=== PATIENT | female | born 1985 | race African-American/Black ===

== ENCOUNTER 2016-09-06 06:56 | Emergency (ER) | payer OTHER ==
[2016-09-06 07:38] LABS: BASOPHIL % 0.8 % (0-2); PLATELET COUNT 230 x10^3mcL (130-400)
[2016-09-06 07:43] LABS: CALCIUM 8.9 mg/dL (8.5-10.1); CARBON DIOXIDE 27.6 mmol/L (21-32); CHLORIDE SERUM 101 mmol/L (98-107); GFR1 > 60 mL/min; GLUCOSE SERUM 169 mg/dL (74-106); POTASSIUM SERUM 4.5 mmol/L (3.5-5.1); SODIUM SERUM 133 mmol/L (136-145)
[2016-09-06 07:45] LABS: RED CELL DISTRIBUTION WIDTH 15.6 % (11.5-14.5)
[2016-09-06 07:48] LABS: ALBUMIN 3.5 g/dL (3.4-5.0); ALKALINE PHOSPHATASE 82 U/L (46-116); ALT/SGPT 16 U/L (14-59); AMYLASE 61 U/L (25-115); AST/SGOT 14 U/L (15-37); BILIRUBIN TOTAL 0.4 mg/dL (0.20-1.00); LIPASE 155 IU/L (73-393); TOTAL PROTEIN, SERUM 7.3 g/dL (6.4-8.2)
[2016-09-06 08:36] LABS: UA SPECIFIC GRAVITY >=1.030 (1.005-1.035); microscopic required? YES; urine erythrocyte NEGATIVE (NEGATIVE)
[2016-09-06 10:14] VITALS: BP 106/72
== END 2016-09-06 10:15 | disposition home or self-care (01) ==
LOC: ED 06:56
PROVIDERS: Emergency Medicine
DX: N83.201 Unspecified ovarian cyst, right side (principal)
CPT/HCPCS: J1170; J2405; J7030; Q9967

== ENCOUNTER 2016-12-27 14:36 | Emergency (ER) | payer OTHER ==
[2016-12-27 17:34] LABS: BASOPHIL % 0.6 % (0-2); PLATELET COUNT 184 x10^3mcL (130-400)
[2016-12-27 17:35] LABS: RED CELL DISTRIBUTION WIDTH 17.3 % (11.5-14.5)
[2016-12-27 17:36] LABS: ALKALINE PHOSPHATASE 112 U/L (46-116); ALT/SGPT 59 U/L (14-59); AST/SGOT 55 U/L (15-37); BILIRUBIN TOTAL 0.57 mg/dL (0.20-1.00); CALCIUM 8.1 mg/dL (8.5-10.1); CARBON DIOXIDE 28.9 mmol/L (21-32); CHLORIDE SERUM 101 mmol/L (98-107); GFR1 > 60 mL/min; GLUCOSE SERUM 168 mg/dL (74-106); LIPASE 125 IU/L (73-393); SODIUM SERUM 133 mmol/L (136-145); TOTAL PROTEIN, SERUM 7.1 g/dL (6.4-8.2)
[2016-12-27 17:38] LABS: ALBUMIN 3.2 g/dL (3.4-5.0)
[2016-12-27 18:36] VITALS: BP 126/59
== END 2016-12-27 18:34 | disposition home or self-care (01) ==
LOC: ED 14:36
PROVIDERS: Emergency Medicine
DX: N39.0 Urinary tract infection, site not specified (principal); E87.6 Hypokalemia; E11.9 Type 2 diabetes mellitus without complications
CPT/HCPCS: J1885

== ENCOUNTER 2017-02-26 10:20 | Emergency (ER) | payer OTHER ==
[~2017-02-26] VITALS: Ht 165.1 cm; Wt 93.1 kg
[2017-02-26 10:32] VITALS: Ht 165.1 cm; Wt 93.1 kg
[2017-02-26 17:09] VITALS: BP 134/83
[2017-02-27 09:02] LABS: RAPID PLASMA REAGIN Non Reactive (Non Reactive)
== END 2017-02-26 17:09 | disposition home or self-care (01) ==
LOC: ED 10:20
PROVIDERS: Emergency Medicine
DX: N39.0 Urinary tract infection, site not specified (principal); E87.6 Hypokalemia; E11.9 Type 2 diabetes mellitus without complications; Z79.84 Long term (current) use of oral hypoglycemic drugs
CPT/HCPCS: 82962; 87491; 87591; J0696

== ENCOUNTER 2017-07-29 11:34 | Emergency (ER) | payer OTHER ==
[~2017-07-29] VITALS: Ht 167.6 cm; Wt 94.3 kg
[2017-07-29 11:48] VITALS: Ht 167.6 cm; Wt 94.3 kg
[2017-07-29 13:12] LABS: BASOPHIL % 0.1 % (0-2); CALCIUM 8.6 mg/dL (8.5-10.1); CARBON DIOXIDE 27.1 mmol/L (21-32); CHLORIDE SERUM 104 mmol/L (98-107); GFR1 > 60 mL/min; GLUCOSE SERUM 227 mg/dL (74-106); PLATELET COUNT 237 x10^3mcL (130-400); POTASSIUM SERUM 3.5 mmol/L (3.5-5.1); SODIUM SERUM 135 mmol/L (136-145)
[2017-07-29 13:22] LABS: ALKALINE PHOSPHATASE 99 U/L (46-116); ALT/SGPT 11 U/L (14-59); AST/SGOT 10 U/L (15-37); BILIRUBIN TOTAL 0.4 mg/dL (0.20-1.00); TOTAL PROTEIN, SERUM 7.7 g/dL (6.4-8.2)
[2017-07-29 13:23] LABS: RED CELL DISTRIBUTION WIDTH 16.8 % (11.5-14.5)
[2017-07-29 13:29] LABS: CK-MB < 0.5 ng/mL (0-3.6); CREATINE KINASE 45 U/L (26-192)
[2017-07-29 13:34] LABS: FREE T4 0.91 ng/dL (0.76-1.46); FREE THYROXINE INDEX 2.3 ug/dL (1.4-4.5); T4(THYROXINE) 7.1 ug/dL (4.7-13.3)
[2017-07-29 13:44] LABS: T3 TOTAL 0.74 ng/mL
[2017-07-29 13:55] LABS: C REACTIVE PROTEIN 27.3 mg/dL (<=0.9)
[2017-07-29 14:11] LABS: ERYTHROCYTE SED RATE 86 mm/hr (0-20)
[2017-07-29 14:21] LABS: UA SPECIFIC GRAVITY >=1.030 (1.005-1.035); microscopic required? YES; urine erythrocyte TRACE (NEGATIVE)
[2017-07-29 15:31] VITALS: BP 134/79
== END 2017-07-29 15:31 | disposition left against medical advice (07) ==
LOC: ED 11:34
PROVIDERS: Specialist
DX: N83.202 Unspecified ovarian cyst, left side (principal); N83.201 Unspecified ovarian cyst, right side; N39.0 Urinary tract infection, site not specified; E11.9 Type 2 diabetes mellitus without complications
CPT/HCPCS: 83880; 84439; J1885; J7030; Q0092